=== PATIENT | male | born 1960 | race Caucasian/White ===

== ENCOUNTER 2017-05-18 17:59 | Emergency (ER) | payer BC ==
[~2017-05-18] VITALS: Ht 182.9 cm; Wt 55.7 kg
[~2017-05-18 17:59] MED LIST: Habitrol,Nicoderm CQ TD; Levaquin PO; NAPROXEN500 MG PO; NEBULIZER MACHINE; PROVENTIL,2.5 MG/0.5 IH; SPIRIVA1 INHALATI IH; Tylenol Regular Stre PO; VALIUM2 MG PO; predniSONE PO
[2017-05-18 20:02] LABS: HEMATOCRIT 41.9 % (38.0-50.0); MCH 29.9 PG (29.0-34.0); MCHC 34.4 G/DL (30.0-36.0); MCV 87.1 FL (86-99); MEAN PLAT.VOLUME 9.4 uM^3 (9.0-12.4); PLATELET COUNT 211 K/uL (156-360); RBC DIS.WIDTH-CV 12.9 % (11.8-14.6); RBC DIS.WIDTH-SD 41.4 % (39-53); RED BLOOD COUNT 4.81 M/uL (4.00-5.50); WHITE BLOOD COUNT 13.3 K/uL (4.1-10.2)
[2017-05-18 20:15] LABS: CHLORIDE 100 mEq/L (99-109); POTASSIUM 3.8 mEq/L (3.7-5.4); SODIUM 134 mEq/L (136-147)
[2017-05-18 20:17] LABS: GLUCOSE 138 mg/dL (70-99)
[2017-05-18 20:18] LABS: ANION GAP 9 MEQ/L (2-14)
[2017-05-18 20:21] LABS: GFR ESTIMATE (CALCULATED) > 59 mL/min/
[2017-05-18 20:22] LABS: UREA NITROGEN (BUN) 10 mg/dL (9-23)
[2017-05-18] MEDS ORDERED: PREDNISONE20 MG PO (21:25)
[2017-05-18 21:38] VITALS: BP 96/73
== END 2017-05-18 21:39 | disposition home or self-care (01) ==
LOC: EME 17:59
DX: J44.1 Chronic obstructive pulmonary disease with (acute) exacerbation (principal); F17.200 Nicotine dependence, unspecified, uncomplicated
CPT/HCPCS: 71020; 80048; 85027; 94640; 99281; 99285; J1100

== ENCOUNTER 2018-02-17 13:29 | Emergency (ER) | payer OTHER ==
[~2018-02-17] VITALS: Ht 180.3 cm; Wt 68.2 kg
[~2018-02-17 13:29] MED LIST changes: +PREDNISONE20 MG PO
[2018-02-17 16:19] VITALS: BP 126/89
== END 2018-02-17 16:19 | disposition home or self-care (01) ==
LOC: EME 13:29
DX: S83.92XA Sprain of unspecified site of left knee, initial encounter (principal); X50.1XXA Overexertion from prolonged static or awkward postures, initial encounter; Y93.02 Activity, running; M25.462 Effusion, left knee
CPT/HCPCS: 73564; 99281; 99284